=== PATIENT | male | born 1975 | race Two or more races ===

== ENCOUNTER 2021-05-17 09:36 | Emergency (ER) | payer SELFPAY ==
[2021-05-17 10:01] VITALS: BP 155/98; PULSE 88; TEMP 97.7; BMI 36.9
== END 2021-05-17 11:22 | disposition home or self-care (01) ==
LOC: JERFT 09:36 → JER 09:36 → JERFT 11:22
PROC: 0H96XZZ Drainage of Back Skin, External Approach (ICD-10-PCS; principal; 2021-05-17)
DX: L02.212 Cutaneous abscess of back [any part, except buttock and flank] (principal)
CPT/HCPCS: 99282-25

== ENCOUNTER 2021-05-19 10:32 | Emergency (ER) | payer SELFPAY ==
[2021-05-19 10:47] VITALS: BP 135/104; PULSE 100; TEMP 98; BMI 36.9
== END 2021-05-19 11:59 | disposition home or self-care (01) ==
LOC: JERFT 10:32
DX: Z48.00 Encounter for change or removal of nonsurgical wound dressing (principal)
CPT/HCPCS: 99283-25

== ENCOUNTER 2021-05-22 12:18 | Emergency (ER) | payer SELFPAY ==
[2021-05-22 12:54] VITALS: BP 154/99; PULSE 87; TEMP 97.7; BMI 36.9
[2021-05-22] MEDS ORDERED: KETOROLAC TROMETHAMINE 60 MG/2 ML VIAL IVPUSH ONE (14:07)
[2021-05-22] MEDS ORDERED: CYCLOBENZAPRINE HCL 10 MG TABLET (FP) PO ONE (14:07)
[2021-05-22] MEDS ORDERED: CYCLOBENZAPRINE HCL 10 MG TABLET (FP) ONE (14:10)
[2021-05-22] MEDS ORDERED: KETOROLAC TROMETHAMINE 15 MG/ML VIAL ONE (14:10)
[2021-05-22 15:09] LABS: BASO % 0.9 % (0-2.0); EOS % 4.7 % (0-4.5); HEMATOCRIT 43.1 % (35.4-49); HEMOGLOBIN 14.9 GM/dL (11.7-16.9); LYMPH % 32.7 % (8-40); MCH 29.9 pg (25.7-33.7); MCHC 34.5 g/dl (32.0-35.9); MEAN CELL VOLUME 86.7 fl (80-96); MEAN PLT VOLUME 7.2 fl (7.5-11.1); MONO % 11.9 % (3.8-10.2); NEUT % 49.8 % (42.8-82.8); PLATELET COUNT 245 10^3/uL (134-434); RBC 4.98 M/mm3 (4.00-5.60); RDW 13.6 % (11.9-15.9); WHITE BLOOD COUNT 7.2 K/mm3 (4.0-10.0)
[2021-05-22 15:31] LABS: ALBUMIN 4.3 g/dl (3.4-5.0)
[2021-05-22 15:34] LABS: CREATININE 1.5 mg/dL (0.55-1.3)
[2021-05-22 15:36] LABS: BILIRUBIN,TOTAL 0.6 mg/dL (0.2-1)
== END 2021-05-22 17:57 | disposition home or self-care (01) ==
LOC: JERFT 12:18
PROC: 3E0333Z Introduction of Anti-inflammatory into Peripheral Vein, Percutaneous Approach (ICD-10-PCS; principal; 2021-05-22)
DX: D17.1 Benign lipomatous neoplasm of skin and subcutaneous tissue of trunk (principal); M79.10 Myalgia, unspecified site
CPT/HCPCS: 36415; 70491-TC; 80053; 85025; 99285-25; Q9967